=== PATIENT | female | born 1975 | race Two or more races ===

== ENCOUNTER 2019-04-29 06:12 | Day surgery (SDC) | payer OTHER ==
[2019-04-29 06:47] LABS: HEMATOCRIT 35.2 % (32.4-45.2); HEMOGLOBIN 11.3 GM/dL (10.7-15.3); MCH 25.1 pg (25.7-33.7); MCHC 32.2 g/dl (32.0-36.0); MEAN PLT VOLUME 10.4 fl (7.5-11.1); PLATELET COUNT 218 K/MM3 (134-434); RBC 4.52 M/mm3 (3.60-5.2); RDW 17.7 % (11.6-15.6); WHITE BLOOD COUNT 7.9 K/mm3 (4.0-10.0)
[2019-04-29] MEDS ORDERED: MIDAZOLAM HCL 2 MG/2 ML SINGLE DOSE VIAL ONE ×2 (07:40→07:58)
[2019-04-29] MEDS ORDERED: ROPIVACAINE HCL 0.5% 30ML VIAL ONE (07:57)
[2019-04-29] MEDS ORDERED: CEFAZOLIN 1 GM in DEXTROSE 5%-WATER - 50 ML IVPB ONE (08:07)
[2019-04-29] MEDS ORDERED: PROPOFOL 20 ML ONE ×2 (08:25)
[2019-04-29] MEDS ORDERED: ROCURONIUM BROMIDE 50 MG/5 ML SYRINGE ONE (08:26)
[2019-04-29] MEDS ORDERED: fentaNYL CITRATE 250 MCG/5 ML VIAL ONE ×2 (08:26→09:59)
[2019-04-29] MEDS ORDERED: ceFAZolin 2 GRAM PREMIX BAG IVPB ONE (08:31)
[2019-04-29] MEDS ORDERED: NEOSTIGMINE METHYLSULFATE 0.5 MG/ML - 10 ML MDV ONE (10:50)
[2019-04-29] MEDS ORDERED: DEXAMETHASONE SOD PHOSPHATE 4 MG/1 ML VIAL ONE (10:50)
[2019-04-29] MEDS ORDERED: KETOROLAC TROMETHAMINE 30 MG/1 ML VIAL ONE (10:50)
[2019-04-29] MEDS ORDERED: GLYCOPYRROLATE 0.2 MG/1 ML VIAL ONE ×2 (10:50)
--- NOTE | 2019-04-29 11:06 | OP ---
Operative Note - Note: Operative Date: 04/29/19 Operation: Total robotic hysterectomy. Bilateral salpingectomy. Lysis of adhesions. Cystoscopy. Surgeon: Rasheed Wetzel Maintainability Engineer: Al Antunez Anesthesiologist/HADOOP ADMIN: Maikel Freedman Anesthesia: General Estimated Blood Loss (mls): 50
[2019-04-29] MEDS ORDERED: oxyCODONE HCL 5 MG TABLET PO PRN ×3 (11:28→11:55)
[2019-04-29] MEDS ORDERED: ONDANSETRON 4 MG/2 ML VIAL IVPUSH PRN ×2 (11:28→11:55)
[2019-04-29] MEDS ORDERED: PROMETHAZINE HCL 25 MG/1 ML VIAL IVPB PRN (11:28)
[2019-04-29] MEDS ORDERED: traMADol HCL 50 MG TABLET PO PRN (11:29)
[2019-04-29] MEDS ORDERED: ACETAMINOPHEN 325 MG TABLET (FP) PO PRN ×2 (11:55→14:26)
[2019-04-29] MEDS ORDERED: KETOROLAC TROMETHAMINE 30 MG/1 ML VIAL IVPUSH PRN (11:55)
[2019-04-29] MEDS ORDERED: BISACODYL 5 MG TABLET.DR (FP) PO PRN (11:55)
[2019-04-29] MEDS ORDERED: ACETAMINOPHEN 1000 MG/100 ML VIAL (NON FORMULARY) IVPB PRN (11:55)
--- NOTE | 2019-04-29 12:02 | SURG ---
Surgery Top Taper Machine Note Top Taper Machine: TRINA Taylor Date of Service: 04/29/19 Diagnosis: Fibroid Uterus Procedure: Operation: Total robotic hysterectomy. Bilateral salpingectomy. Lysis of adhesions. Cystoscopy. I was present for the entirety of the operative procedure. For further detail, please refer to operative report.
[2019-04-29] MEDS ORDERED: ACETAMINOPHEN INJECTION 100 ML IVPB ONE (12:08)
--- NOTE | 2019-04-29 12:59 | OP ---
DATE OF OPERATION: DATE OF DICTATION: 04/29/2019 PREOPERATIVE DIAGNOSES: 1. Uterine leiomyomata with severe menometrorrhagia. 2. Iron deficiency anemia. 3. Extensive adhesions and scar tissue. POSTOPERATIVE DIAGNOSES: 1. Uterine leiomyomata with severe menometrorrhagia. 2. Iron deficiency anemia. 3. Extensive adhesions and scar tissue. OPERATION: 1. Robotic total hysterectomy. 2. Bilateral salpingectomy. 3. Lysis of extensive adhesions and scar tissue. 4. Cystoscopy. SURGEON: Radha Quintero MD FLEET ADMINISTRATOR: TRINA Sellers ANESTHESIOLOGIST: Maikel Freedman MD ANESTHESIA: General. PROCEDURE AND FINDINGS: Patient was placed under general anesthesia in dorsal lithotomy and examined. Uterus was found to be about 8-week size, firmly stuck to the anterior abdominal wall. Adnexa felt negative. Vagina was long and closed. Cervix was small and nulliparous. Vulvovaginal prep was carried out, cervix was grasped with tenaculum and os was gently dilated. Small VCare device was placed in the uterine cavity. Dimas catheter was inserted. Abdomen was prepped and draped for da Warren laparoscopy. Long paramedial vertical and Pfannenstiel incisions with poorly healed keloids were noted. Decision was made not to access the abdomen through the umbilicus. Instead left upper quadrant was selected. A 5 mm transverse incision was done and using AirSeal 5 mm trocar after proper insufflation cavity was entered. Veress needle was used for the insufflation, which went uneventfully, except for intraabdominal pressure being somewhat high. With regular 5 mm scope, under direct observation , umbilical incision was placed and central da Warren trocar was introduced. Two other 8.5 mm trocars were placed on the level of umbilicus right and left laterally. Only 3 robotic arms were used. With ports in place, in Trendelenburg position, robot was docked. Vessel sealer was placed and right-sided port, which was No. 3 and fenestrated bipolar device in arm No. 1 on the left side. Pelvis was assessed. Uterus was noted to be irregular, enlarged and, as expected, appeared firmly throughout the whole length of the anterior wall to the abdominal surface. Loop of small intestine was adhered to the abdominal wall mid abdomen. Right ovary was missing, but the right fallopian tube was present. Adhesions around the round ligament were noted as well. On the left side, left ovary was buried in adhesions and stuck to the posterior leaf of left broad ligament. Left fallopian tube was relatively free. Cul-de-sac was free, but anteriorly no free space was noted. Right mesosalpinx was divided, but right tube was left attached to the uterus. Round ligament was identified and divided using vessel sealer throughout most of the dissection. The space was open and posterior leaf was divided without difficulties. Anterior leaf was open quite laterally and careful partly blunt and partly sharp dissection was carried out identifying structures. Uterine vessels were encountered much higher than expected. Right ureter was only partly visualized and the decision was made already to do cystoscopy postoperatively. Dissection was carried out inferiorly and cervix was identified. Adhesions were lysed and anterior scar tissue was partly divided. Uterine vessels were then coagulated, divided and part of the cardinal ligaments were dissected as well. Attention was then turned to the left side. Left fallopian tube was dissected and left in the cul-de-sac to be removed later. Left round ligament and left broad ligament were then divided and area was dissected in the similar fashion as it was done on the right side. Dissection was carried out very carefully with a lot of scar tissue and extensive fibrosis encountered. Large, thick uterine vessels were encountered on the left side coagulated and divided. At that point vessel sealer was replaced with monopolar scissors since scar tissue was too thick and too hard for vessel sealer to be effective. Using cutting mode and alternating with coagulation, scar tissue was carefully, tediously and painstakingly divided freeing the bladder and taking it off anterior wall of the uterus and partly off the cervix. At that point VCare device was inadvertently disconnected and sponge stick was used for the rest of the case. With scar tissue attaching anterior part of the cervix to the abdominal wall still partially undivided right-sided fornix was identified. It was entered sharply using sponge stick as the guide. That was partly opened and then with a better understanding of anatomical relationships, scar tissue was completely divided. Urine was repeatedly reported as clear throughout the dissection. Dissection of the uterus and the fornix was then completed under direct vision and uterus with the right tube still attached was removed through the vaginal vault. Fallopian tube that was free-floating was removed as well. Scissors were then replaced with megadriver and 2-0 V-Loc suture was used to close the vaginal vault. It was closed with continuous running suture with excellent suspension and solid closure. The main part of the procedure was thus accomplished. Robotic instruments were then removed and the robot was undocked. Using 5 mm scope and Endo Shear, the loop of small intestine that was attached to the anterior abdominal wall was released without any complications. At that point laparoscopic part of the procedure was completed. Gas was allowed to escape from the abdomen and instruments and ports were removed under direct vision. Incisions were closed with Moncryl 3-0 sutures and Dermabond. Cystoscopy was performed as follows. Dimas catheter was removed. Bladder was filled with 200 mL of normal saline. Using 5 mm scope with 30-degree angle, bladder was entered. Trigone and bladder dome were completely within normal limits. Both ureteral ostia were then identified and puffs of fresh urine were seen coming out. The integrity and functionality of both ureters were thus confirmed. Scope was withdrawn and the ureter was noted to be normal as well. Fresh Dimas catheter was inserted. Procedure was completed at that point. Patient was awakened and transferred to the PACU comfortable and stable. Blood loss was less than 50 mL. Condition remained stable and other than anatomical distortions resulting from multiple previous surgeries, there were no surgical complications. RADHA QUINTERO MD [id number] MTDD
[2019-04-29] MEDS ORDERED: SODIUM CHLORIDE 0.9% 500 ML INFUS.BAG IV ONE (14:15)
[2019-04-29] MEDS ORDERED: LACTATED RINGERS SOLUTION 1,000 ML IV SCH (14:15)
[2019-04-29] MEDS: ACETAMINOPHEN 325 MG TABLET (FP) PO SCH ×3 (16:02→23:50)
[2019-04-29] MEDS: CEFAZOLIN 1 GM/D5W 1 GM/50 ML BAG IVPB SCH (18:00)
[2019-04-29] MEDS ORDERED: CEFAZOLIN 1 GM in DEXTROSE 5%-WATER - 50 ML IVPB SCH (18:00)
[2019-04-29] MEDS: SIMETHICONE 80 MG TAB.CHEW (FP) PO PRN (21:37)
[2019-04-29] MEDS: DOCUSATE SODIUM 100 MG CAPSULE (FP) PO PRN (21:37)
[2019-04-29] MEDS: oxyCODONE HCL 10 MG SUSTAINED ACTING TABLET PO SCH (21:37)
[2019-04-30] MEDS: CEFAZOLIN 1 GM/D5W 1 GM/50 ML BAG IVPB SCH (02:01)
[2019-04-30] MEDS: oxyCODONE HCL 5 MG TABLET PO PRN ×2 (02:10→06:17)
[2019-04-30] MEDS: SIMETHICONE 80 MG TAB.CHEW (FP) PO PRN ×2 (06:16→09:57)
[2019-04-30] MEDS: ACETAMINOPHEN 325 MG TABLET (FP) PO SCH ×2 (06:16→12:10)
[2019-04-30] MEDS: DOCUSATE SODIUM 100 MG CAPSULE (FP) PO PRN (06:17)
--- NOTE | 2019-04-30 08:07 | PN ---
Progress Note (short form) - Note Progress Note: Excewllent recovery. Abd. benign. Healing. Instructed. Discharge.
--- NOTE | 2019-04-30 08:20 | PN ---
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 Pt denies any fever, chills, n/v. Pt ambulating and urinating well. Minimal vaginal bleeding. Last Vital Signs Temp Pulse Resp BP Pulse Ox 98.7 F 76 18 129/68 99 04/30/19 02:17 04/30/19 02:17 04/30/19 02:17 04/30/19 02:17 04/29/19 22:00 CBC, BMP 04/29/19 06:23 PE: Gen: A&O x3 Resp: breathing comfortably Abd: soft, nondistended, mild abd tenderness, incisions clean with no erythema or discharge. Ext: no edema Problem List - Problems (1) S/P hysterectomy Assessment/Plan: Plan -pt appears to be doing well, pt cleared for discharge home. Pt should follow up with Dr. Wetzel as outpatient for postop check. Pt discussed with Dr. Wetzel who agrees with plan Code(s): Z90.710 - ACQUIRED ABSENCE OF BOTH CERVIX AND UTERUS
[2019-04-30 08:39] LABS: HEMATOCRIT 29.2 % (32.4-45.2); HEMOGLOBIN 9.5 GM/dL (10.7-15.3); MCH 25.2 pg (25.7-33.7); MCHC 32.6 g/dl (32.0-36.0); MEAN CELL VOLUME 77.5 fl (80-96); MEAN PLT VOLUME 10.4 fl (7.5-11.1); PLATELET COUNT 215 K/MM3 (134-434); RBC 3.77 M/mm3 (3.60-5.2); WHITE BLOOD COUNT 10.1 K/mm3 (4.0-10.0)
[2019-04-30] MEDS: oxyCODONE HCL 10 MG SUSTAINED ACTING TABLET PO SCH (09:58)
[2019-04-30] MEDS ORDERED: FLU VACCINE QUAD 60 MCG/0.5 ML (MDV 19-20) IM ONE (10:00)
[2019-04-30] MEDS ORDERED: FLU VACC QS2019-20(6MOS UP)/PF 60 MCG/0.5 ML SYRINGE IM ONE (10:00)
[2019-04-30] MEDS ORDERED: ENOXAPARIN NA (PORCINE) 40 MG/0.4 ML DISP.SYRIN SQ SCH (10:00)
--- NOTE | 2019-04-30 11:38 | PN ---
Progress Note (short form) - Note Progress Note: Anesthesia postop note 43 y/o F s/p GA and tap blocks for robotic hysterectomy POD#1, vss, aaox3, pain well controlled. No anesthesia complications.
[2019-04-30 12:46] VITALS: BP 100/63; PULSE 61; TEMP 98
--- NOTE | 2019-05-01 19:19 | PATH ---
Surgical Pathology Report Patient Name: JOSE NUNEZ [facility]. Rec. #: [id number] /Age/Gender: 1975 (Age: 43) / F Account: [id number] Location: AMBULATORY SURG Taken: 04/29/2019 Received: 04/29/2019 Reported: 05/01/2019 Physicians: Rasheed Wetzel MD Specimen(s) Received A: LEFT FALLOPIAN TUBE B: UTERUS WITH RIGHT FALLOPIAN TUBE Clinical History Leiomyoma of uterus, menometrorrhagia Final Diagnosis A. FALLOPIAN TUBE, LEFT, SALPINGECTOMY: PORTION OF FALLOPIAN TUBE WITH LUMINAL CONGESTION AND HEMORRHAGE. B. UTERUS AND FALLOPIAN TUBE, RIGHT, ROBOTIC TOTAL HYSTERECTOMY AND SALPINGECTOMY: 121 G UTERUS. LEIOMYOMA(TA), SUBMUCOSAL AND INTRAMURAL. PROLIFERATIVE ENDOMETRIUM. CERVIX WITHOUT SIGNIFICANT PATHOLOGIC FINDINGS. DENSE SEROSAL ADHESIONS. RIGHT FALLOPIAN TUBE WITH ENDOSALPINGOSIS AND VASCULAR CONGESTION. Electronically Signed Huyen Gray M.D. Gross Description A. Received in formalin labeled "left fallopian tube," is a 3 cm in length fallopian tube. No fimbria are present. The outer surface is broderick purple and smooth. Sectioning reveals a dilated lumen containing blood clot. Elevator Service Mechanic sections are submitted in one cassette. B. Received in formalin labeled "uterus with right fallopian tube," is a 121 g uterus with an attached cervix and attached right fallopian tube. The specimen measure is 10.5 cm from superior to inferior, 5.7 cm from left to right and 5.0 cm from anterior to posterior. The cervix measures 3.5 cm in length and averages 1.7 cm in diameter. The ectocervix is bianchi, smooth and glistening. The endocervix is unremarkable. The serosa is bianchi-broderick with adhesions on the anterior aspect. The endometrial cavity measures 5 cm in length and 2.2 cm from cornu to cornu. The endometrium is bianchi-red and averages 0.1 cm in thickness. There is a 1.1 cm in greatest dimension submucosal nodule as well as 2 intramural nodules, averaging 0.5 cm in greatest dimension. The cut surface of the nodules is bianchi and rubbery with whorled architecture. No areas of hemorrhage or necrosis are identified. The remaining myometrium is bianchi-pink and averages 2.5 cm in thickness. The right fimbriated fallopian tube measures 5 cm in length and appears previously ligated. The outer surface is broderick purple. Sectioning reveals an unremarkable lumen. Elevator Service Mechanic sections are submitted in 9 cassettes as follows: 1-anterior cervix; 2-posterior cervix; 3-8-[id number] endomyometrium; 5-4-qgccwarjv endomyometrium; 7-submucosal and intramural nodules; 8-right fallopian tube fimbria; 9-cross sections of right fallopian tube. 04/30/2019 [facility]04/30/2019
== END 2019-04-30 11:47 | disposition home or self-care (01) ==
LOC: JASUSAT 06:12 → J3W 15:23 → JASUSAT 04-30 11:47
PROVIDERS: ATTEND Specialist
PROC: 0UTC4ZZ Resection of Cervix, Percutaneous Endoscopic Approach (ICD-10-PCS; 2019-04-29)
PROC: 0UT74ZZ Resection of Bilateral Fallopian Tubes, Percutaneous Endoscopic Approach (ICD-10-PCS; 2019-04-29)
PROC: 8E0W8CZ Robotic Assisted Procedure of Trunk Region, Via Natural or Artificial Opening Endoscopic (ICD-10-PCS; 2019-04-29)
PROC: 0TJB8ZZ Inspection of Bladder, Via Natural or Artificial Opening Endoscopic (ICD-10-PCS; 2019-04-29)
PROC: 0UT94ZZ Resection of Uterus, Percutaneous Endoscopic Approach (ICD-10-PCS; principal; 2019-04-29 08:00)
DX: D25.9 Leiomyoma of uterus, unspecified (principal); N92.1 Excessive and frequent menstruation with irregular cycle; D50.9 Iron deficiency anemia, unspecified; N73.6 Female pelvic peritoneal adhesions (postinfective); L90.5 Scar conditions and fibrosis of skin
CPT/HCPCS: 52000; 58571; S2900; 36415; 84703; 85027; 86850; 86900; 86901; 88302-TC; 88307-TC; 90686; 94760; J0131